=== PATIENT | female | born 1990 | race African-American/Black ===

== ENCOUNTER 2017-07-16 16:28 | Inpatient (IN) | payer OTHER ==
[~2017-07-16] VITALS: Ht 149.9 cm; Wt 54.1 kg
[2017-07-16 19:53] VITALS: BP 119/60
[2017-07-16] MEDS ORDERED: MAALOX 30 ML SUSP *UDC PO PRN (20:30)
[2017-07-16] MEDS ORDERED: ACETAMINOPHEN TAB 650MG DOSE (2X325MG) PO PRN (20:30)
[2017-07-16] MEDS ORDERED: traZODone 50 MG TAB PO PRN (20:30)
[2017-07-16] MEDS ORDERED: LORazepam 1 MG TAB PO PRN (20:30)
[2017-07-16] MEDS ORDERED: MOM 30ML SUSPENSION UDC PO PRN (20:30)
[2017-07-17 06:32] VITALS: BP 136/67
[2017-07-17] MEDS: ALBUTEROL 90 MCG/ACT 8GM HFA INHALER INH PRN ×2 (07:16→23:31)
[2017-07-17] MEDS ORDERED: SODIUM CHLORIDE NASAL 0.65% SPRAY BTL (OCEAN) PRN (08:45)
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
[2017-07-17 09:46] LABS: MEAN CORPUSCULAR HEMOGLOBIN 31.3 pg (27.0-33.0); MEAN CORPUSCULAR HGB CONC 34.1 g/dl (32.0-36.5); MEAN CORPUSCULAR VOLUME 91.7 fl (80.0-96.0); RED CELL DISTRIBUTION WIDTH 11.7 % (11.5-14.5); WHITE BLOOD COUNT 7.9 K/mm3 (4.0-10.0)
[2017-07-17 10:18] LABS: ALBUMIN 3.9 GM/DL (3.2-5.2); ALBUMIN/GLOBULIN RATIO 0.95 (1.00-1.93); ALKALINE PHOSPHATASE 55 U/L (45-117); ALT/SGPT 17 U/L (12-78); ANION GAP 12 MEQ/L (8-16); AST/SGOT 11 U/L (15-37); BILIRUBIN,TOTAL 0.7 MG/DL (0.2-1.0); BLOOD UREA NITROGEN 12 MG/DL (7-18); CALCIUM LEVEL 8.7 MG/DL (8.5-10.1); CARBON DIOXIDE LEVEL 22 MEQ/L (21-32); CHLORIDE LEVEL 105 MEQ/L (98-107); CREATININE FOR GFR 0.86 MG/DL (0.55-1.02); GLOMERULAR FILTRATION RATE > 60.0 (>60); GLUCOSE, FASTING 130 MG/DL (70-105); POTASSIUM SERUM 3.2 MEQ/L (3.5-5.1); SODIUM LEVEL 139 MEQ/L (136-145)
[2017-07-17 12:01] VITALS: BP 102/58
[2017-07-17] MEDS ORDERED: ACETAMINOPHEN TAB 650MG DOSE (2X325MG) PO ONE (14:30)
[2017-07-17 18:00] VITALS: BP 108/60
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
[2017-07-17] MEDS ORDERED: LORazepam 1 MG TAB PO PRN (20:30)
--- NOTE | 2017-07-17 21:48 | ECGEPIP ---
Stationary ECG Study [facility] Test Date: 2017-07-17 Pat Name: GRETEL TREVINO Department: Room: [place] [address] Gender: F Gin Inspector: FELICIA : 1990 Requested By: Leatha Saba Order Number: [id number] Reading MD: Tee Alcantar Measurements Intervals [place] Rate: 106 P: 74 NH: 152 QRS: 66 QRSD: 71 T: 63 QT: 298 QTc: 397 Interpretive Statements Sinus tachycardia Possible right atrial enlargement Nonspecific ST-T wave abnormalities Comparison tracing not on file Electronically Signed On 07-17-2017 21:48:33 EDT by Tee Alcantar
[2017-07-18 06:23] VITALS: BP 106/59
[2017-07-18 13:18] LABS: ANION GAP 11 MEQ/L (8-16); BLOOD UREA NITROGEN 9 MG/DL (7-18); CALCIUM LEVEL 8.9 MG/DL (8.5-10.1); CARBON DIOXIDE LEVEL 24 MEQ/L (21-32); CHLORIDE LEVEL 107 MEQ/L (98-107); CREATININE FOR GFR 0.61 MG/DL (0.55-1.02); GLOMERULAR FILTRATION RATE > 60.0 (>60); GLUCOSE, FASTING 87 MG/DL (70-105); POTASSIUM SERUM 3.4 MEQ/L (3.5-5.1); SODIUM LEVEL 142 MEQ/L (136-145)
[2017-07-18] MEDS ORDERED: POTASSIUM CHLORIDE 10 MEQ SR TABLET PO ONE (14:30)
--- NOTE | 2017-07-18 17:50 | MHIPNPDOC ---
[facility] Progress Note Progress Note DATE OF SERVICE: 07/18/17 HISTORY: Patient stalked into interview room, sat down and began to read a book she carrying. Put book down after a few seconds and stated "what? can I leave now?". Patient continues to deny that she was suicidal and states that "nothing here is going to help me". She has been refusing to attend groups and feels that all her problems can be managed outpatient. Accused staff of never giving her a consent form to sign to allow contact with her employer, [employer] indicated that patient had signed a PAT but not for her employer. Patient angrily signed an PAT and then stalked out of the interview. VITAL SIGNS: See below. NEW TEST RESULTS: as below CURRENT MEDICATIONS: See below. MENTAL STATUS EXAMINATION: Patient is a 26-year old female, who is dressed in [facility]; fair grooming; hostile, evasive, uncooperative Speech: Is fluent; angry tone, labile volume Thought processes including: concrete Thought content: denies SI/HI; angry about remaining hospitalized, refuses to attempt inpatient treatment Abstract reasoning, and computation: absent. Description of associations: intact Description of abnormal or psychotic thoughts: denies AVH, does not appear internally preoccupied; no paranoia or delusions elicited Judgment: poor Insight: poor Orientation: x3 Recent and remote memory: intact Attention span and concentration: intact Mood: "I don't need to be here". Affect: angry; restricted range; congruent to mood and thought content DIAGNOSES: MDD, moderate, without psychotic features Borderline Personality Disorder ASSESSMENT: Patient is acting out angrily due to loss of control. Continues to refuse to engage in treatment or cooperate with treatment team. Interview has been limited. Patient denies SI but has not been open with the team and therefore an adequate assessment of her risk of self-harm has been unable to be completed. Given her overt hostility and observed impulsiveness the patient would probably be a moderate-high risk of suicide. She continues to require hospitalization for stabilization at this time. MANAGEMENT PLAN: continue to encourage group participation; discuss medication as able with patient TIME SPENT: 15 minutes. Vital Signs Vital Signs Date Time Temp Pulse Resp B/P (MAP) Pulse Ox O2 Delivery O2 Flow Rate FiO2 07/18/17 06:23 97.8 97 16 106/59 (75) 07/16/17 19:53 Room Air 07/16/17 19:38 98 Laboratory Data 24H Labs Laboratory Tests 2 07/18/17 12:13: Anion Gap 11, Glomerular Filtration Rate > 60.0, Blood Urea Nitrogen 9, Creatinine 0.61, Sodium Level 142, Potassium Level 3.4L, Chloride Level 107, Carbon Dioxide Level 24, Calcium Level 8.9 CBC/BMP Laboratory Tests 07/18/17 12:13 Calcium Level 8.9 Current Medications Current Medications Acetaminophen (Tylenol Tab) 650 mg Q6HP PRN PO HEADACHE or DISCOMFORT Last administered on 07/17/17 23:32; Start 07/16/17 at 20:30; Stop 08/15/17 at 20: 29 Al Hydrox/Mg Hydrox/Simethicone (Mylanta) 30 ml Q4HP PRN PO HEARTBURN/ INDIGESTION; Start 07/16/17 at 20:30; Stop 08/15/17 at 20:29 Albuterol Sulfate (Proventil, Ventolin Hfa) 2 puff Q4HP PRN INH SHORTNESS OF BREATH Last administered on 07/17/17 23:31; Start 07/17/17 at 01:00; Stop at 00:59 Cetylpyridinium Chloride (Cepacol) 1 afua Q2HP PRN PO cough; Start 07/17/17 at 08:45; Stop 08/16/17 at 08:44 Home Med (Med Rec Complete!) ASDIRECTED XX ; Start 07/16/17 at 17:15; Stop at 17:25; Status DC Lorazepam (Ativan) 1 mg Q4HP PRN PO ANXIETY/AGITATION Last administered on 07/17 00:55; Start 07/16/17 at 20:30; Stop 07/17/17 at 11:06; Status DC Lorazepam (Ativan) 1 mg Q8HP PRN PO ANXIETY/AGITATION; Start 07/17/17 at 20:30 ; Stop 07/23/17 at 20:29 Magnesium Hydroxide (Milk Of Magnesia) 30 ml DAILYPRN PRN PO CONSTIPATION; Start 07/16/17 at 20:30; Stop 08/15/17 at 20:29 Sodium Chloride ([place]al [place]) 2 spray Q2HP PRN NA NASAL DRYNESS; Start at 08:45; Stop 08/16/17 at 08:44 Trazodone HCl (Desyrel) 50 mg QHSP PRN PO INSOMNIA; Start 07/16/17 at 20:30; Stop 08/15/17 at 20:29 Allergies Coded Allergies: No Known Allergies (Unverified , 07/16/17) LENA MURPHY MD Jul 18, 2017 17:50
[2017-07-18 18:00] VITALS: BP 119/64
[2017-07-18] MEDS: CEPACOL LOZENGE PO PRN (21:36)
[2017-07-18] MEDS: ALBUTEROL 90 MCG/ACT 8GM HFA INHALER INH PRN (21:36)
[2017-07-19 06:46] VITALS: BP 106/63
[2017-07-19] MEDS: ALBUTEROL 90 MCG/ACT 8GM HFA INHALER INH PRN (07:28)
[2017-07-19] MEDS ORDERED: ALBUTEROL SULFATE 2.5 MG/0.5 ML INH NEB SOLN INH PRN (09:00)
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
[2017-07-19 10:14] LABS: BASO % 0.3 % (0.0-1.0); EOS # 0.4 K/mm3 (0.0-0.50); EOS % 9.2 % (0.0-3.0); LARGE UNSTAINED CELL # 0.2 K/mm3 (0.0-0.4); LARGE UNSTAINED CELL % 3.5 % (0.0-4.0); LYMPH # 1.3 K/mm3 (1.5-6.5); LYMPH % 25.7 % (24.0-44.0); MEAN CORPUSCULAR HEMOGLOBIN 30.9 pg (27.0-33.0); MEAN CORPUSCULAR HGB CONC 34.4 g/dl (32.0-36.5); MEAN CORPUSCULAR VOLUME 89.9 fl (80.0-96.0); MONO # 0.3 K/mm3 (0.0-0.8); MONO % 6.5 % (0.0-5.0); NEUTROPHILS # 2.7 K/mm3 (1.8-7.7); NEUTROPHILS % 54.8 % (36.0-66.0); PLATELET COUNT, AUTOMATED 256 k/mm3 (150-450); RED CELL DISTRIBUTION WIDTH 11.5 % (11.5-14.5); WHITE BLOOD COUNT 4.9 K/mm3 (4.0-10.0)
[2017-07-19 10:36] LABS: ALBUMIN 3.8 GM/DL (3.2-5.2); ALBUMIN/GLOBULIN RATIO 0.95 (1.00-1.93); ALKALINE PHOSPHATASE 50 U/L (45-117); ALT/SGPT 16 U/L (12-78); ANION GAP 9 MEQ/L (8-16); AST/SGOT 8 U/L (15-37); BILIRUBIN,TOTAL 0.4 MG/DL (0.2-1.0); BLOOD UREA NITROGEN 8 MG/DL (7-18); CARBON DIOXIDE LEVEL 27 MEQ/L (21-32); CHLORIDE LEVEL 106 MEQ/L (98-107); CREATININE FOR GFR 0.76 MG/DL (0.55-1.02); GLOMERULAR FILTRATION RATE > 60.0 (>60); GLUCOSE, FASTING 107 MG/DL (70-105); POTASSIUM SERUM 3.5 MEQ/L (3.5-5.1); SODIUM LEVEL 142 MEQ/L (136-145); TOTAL PROTEIN 7.8 GM/DL (6.4-8.2)
[2017-07-19] MEDS: VENLAFAXINE 25 MG TAB PO SCH (11:38)
[2017-07-19] MEDS: ALBUTEROL SULFATE 2.5 MG/0.5 ML INH NEB SOLN INH SCH ×3 (11:58→19:05)
--- NOTE | 2017-07-19 14:36 | REP ---
CHEST, TWO VIEWS: There is no evidence of acute infiltrate. No pleural effusion is seen. The heart is normal in size. The mediastinal silhouette is unremarkable. The visualized osseous structures are intact. IMPRESSION: No acute pulmonary disease. Signed by Juan Diego Chin MD 07/20/2017 05:33 P
--- NOTE | 2017-07-19 17:59 | MHIPNPDOC ---
[facility] Progress Note Progress Note DATE OF SERVICE: 07/19/17 HISTORY: Patient calmer today, stated that she would be willing to begin taking medications. Voiced hope that she would be able to discharge soon after having spoken with her facility planner. VITAL SIGNS: See below. NEW TEST RESULTS: see below CURRENT MEDICATIONS: See below. MENTAL STATUS EXAMINATION: Patient is a 26-year old female, who is dressed in [facility] with fair grooming; patient is calm and cooperative, less guarded and withdrawn than previously Speech: Is fluent; normal rate, tone, and volume Thought processes including: logical, linear, coherent Thought content: denies SI/HI; frustrated at being hospitalized, wants to leave Description of associations: intact Description of abnormal or psychotic thoughts: denies AVH, does not appear internally preoccupied; no delusions or paranoia elicited Judgment: fair Insight: fair Orientation: x3 Recent and remote memory: intact Attention span and concentration: intact Mood: "okay". Affect: neutral; blunted range; congruent to mood and thought content DIAGNOSES: MDD, moderate, without psychotic features Unspecified Personality Disorder ASSESSMENT: Patient is improving, has remained free of SI. Has begun cooperating with treatment team and is entering a partnership phase for treatment. Still remains somewhat guarded with her answers. No safety concern noted, patient would likely be able to maintain safety in the outpatient setting. MANAGEMENT PLAN: start venlafaxine and aripiprazole, will titrate as tolerated; continue to encourage group participation; begin discharge planning TIME SPENT: 15 minutes. Vital Signs Vital Signs Date Time Temp Pulse Resp B/P (MAP) Pulse Ox O2 Delivery O2 Flow Rate FiO2 07/19/17 07:50 Room Air 94 07/19/17 06:46 97.0 92 18 106/63 (77) 07/16/17 19:38 98 Laboratory Data 24H Labs Laboratory Tests 2 07/19/17 09:46: White Blood Count 4.9, Red Blood Count 4.58, Hemoglobin 14.2, Hematocrit 41.2, Mean Corpuscular Volume 89.9, Mean Corpuscular Hemoglobin 30.9, Mean Corpuscular Hemoglobin Concent 34.4, Red Cell Distribution Width 11.5, Platelet Count 256, Neutrophils (%) (Auto) 54.8, Lymphocytes (%) (Auto) 25.7, Monocytes ( %) (Auto) 6.5H, Eosinophils (%) (Auto) 9.2H, Basophils (%) (Auto) 0.3, Neutrophils # (Auto) 2.7, Lymphocytes # (Auto) 1.3L, Monocytes # (Auto) 0.3, Eosinophils # (Auto) 0.4, Basophils # (Auto) 0.0, Large Unclassified Cells % 3.5 , Large Unclassified Cells # 0.2, Anion Gap 9, Glomerular Filtration Rate > 60.0 , Blood Urea Nitrogen 8, Creatinine 0.76, Sodium Level 142, Potassium Level 3.5 , Chloride Level 106, Carbon Dioxide Level 27, Calcium Level 9.0, Aspartate Amino Transf (AST/SGOT) 8L, Alanine Aminotransferase (ALT/SGPT) 16, Alkaline Phosphatase 50, Total Bilirubin 0.4, Total Protein 7.8, Albumin 3.8, Albumin/ Globulin Ratio 0.95L CBC/BMP Laboratory Tests 07/19/17 09:46 Red Blood Count 4.58, Mean Corpuscular Volume 89.9, Mean Corpuscular Hemoglobin 30.9, Mean Corpuscular Hemoglobin Concent 34.4, Red Cell Distribution Width 11.5 , Neutrophils (%) (Auto) 54.8, Lymphocytes (%) (Auto) 25.7, Monocytes (%) (Auto ) 6.5 H, Eosinophils (%) (Auto) 9.2 H, Basophils (%) (Auto) 0.3, Neutrophils # ( Auto) 2.7, Lymphocytes # (Auto) 1.3 L, Monocytes # (Auto) 0.3, Eosinophils # ( Auto) 0.4, Basophils # (Auto) 0.0, Calcium Level 9.0, Aspartate Amino Transf ( AST/SGOT) 8 L, Alanine Aminotransferase (ALT/SGPT) 16, Alkaline Phosphatase 50, Total Bilirubin 0.4, Total Protein 7.8, Albumin 3.8 Current Medications Current Medications Acetaminophen (Tylenol Tab) 650 mg Q6HP PRN PO HEADACHE or DISCOMFORT Last administered on 07/17/17t 23:32; Start 07/16/17 at 20:30; Stop 08/15/17 at 20: 29 Al Hydrox/Mg Hydrox/Simethicone (Mylanta) 30 ml Q4HP PRN PO HEARTBURN/ INDIGESTION; Start 07/16/17 at 20:30; Stop 08/15/17 at 20:29 Albuterol Sulfate (Proventil Neb) 2.5 mg Q2HP PRN INH SOB/WHEEZING; Start 07/19 at 09:00; Stop 08/18/17 at 08:59 Albuterol Sulfate (Proventil Neb) 2.5 mg RQID INH Last administered on 11:58; Start 07/19/17 at 12:00; Stop 08/18/17 at 11:59 Albuterol Sulfate (Proventil, Ventolin Hfa) 2 puff Q4HP PRN INH SHORTNESS OF BREATH Last administered on 07/19/17 07:28; Start 07/17/17 at 01:00; Stop at 00:59 Aripiprazole (AbiLIFY) 2.5 mg QHS PO ; Start 07/19/17 at 21:00; Stop 08/18/17 at 20:59 Cetylpyridinium Chloride (Cepacol) 1 afua Q2HP PRN PO cough Last administered on 07/18/17 21:36; Start 07/17/17 at 08:45; Stop 08/16/17 at 08:44 Home Med (Med Rec Complete!) ASDIRECTED XX ; Start 07/16/17 at 17:15; Stop at 17:25; Status DC Lorazepam (Ativan) 1 mg Q4HP PRN PO ANXIETY/AGITATION Last administered on 07/17 00:55; Start 07/16/17 at 20:30; Stop 07/17/17 at 11:06; Status DC Lorazepam (Ativan) 1 mg Q8HP PRN PO ANXIETY/AGITATION; Start 07/17/17 at 20:30 ; Stop 07/23/17 at 20:29 Magnesium Hydroxide (Milk Of Magnesia) 30 ml DAILYPRN PRN PO CONSTIPATION; Start 07/16/17 at 20:30; Stop 08/15/17 at 20:29 Sodium Chloride ([place] Nasal [place]) 2 spray Q2HP PRN NA NASAL DRYNESS; Start at 08:45; Stop 08/16/17 at 08:44 Trazodone HCl (Desyrel) 50 mg QHSP PRN PO INSOMNIA; Start 07/16/17 at 20:30; Stop 08/15/17 at 20:29 Venlafaxine HCl (Effexor) 50 mg QAM PO Last administered on 07/19/17t 11:38; Start 07/19/17 at 09:00; Stop 08/18/17 at 08:59 Allergies Coded Allergies: No Known Allergies (Unverified , 07/16/17) LENA MURPHY MD Jul 19, 2017 17:59
[2017-07-19 18:20] VITALS: BP 107/70
[2017-07-20 06:49] VITALS: BP 105/59
[2017-07-20] MEDS: ALBUTEROL SULFATE 2.5 MG/0.5 ML INH NEB SOLN INH SCH (07:35)
[2017-07-20] MEDS: VENLAFAXINE 25 MG TAB PO SCH (08:51)
[2017-07-20] MEDS: CEPACOL LOZENGE PO PRN (08:53)
[2017-07-20] MEDS ORDERED: ONDANSETRON 4 MG ORAL DISINTEGRATING TAB (S0181) PO ONE (10:30)
--- NOTE | 2017-07-20 16:55 | MHIPNPDOC ---
[facility] Progress Note Progress Note DATE OF SERVICE: 07/20/17 HISTORY: Mood is better. Reported nausea with 3x episodes of emesis, unclear if due to respiratory tests or starting medications. Patient reported still feeling nauseous, but less so than yesterday, was given Zofran with minor benefit. Excited about prospect of discharge tomorrow. VITAL SIGNS: See below. NEW TEST RESULTS: no new labs/imaging CURRENT MEDICATIONS: See below. MENTAL STATUS EXAMINATION: Patient is a 26-year old female, who is dressed in hospital[facility] with good hygiene/grooming; cooperative with exam, calm, good eye contact Speech: Is fluent; normal rate and tone, soft volume Thought processes including: logical, linear, coherent Thought content: denies SI/HI; focused on discharge and current physical discomfort Description of abnormal or psychotic thoughts: denies AVH, does not appear internally preoccupied; no paranoia or delusions elicited Judgment: fair Insight: fair Orientation: x3 Recent and remote memory: intact Attention span and concentration: intact Mood: "pretty good". Affect: neutral; blunted range; congruent to thought content DIAGNOSES: MDD without psychotic features Unspecified Personality Disorder ASSESSMENT: Patient is improving, she has remained free from reported SI throughout the admission and has not made any suicidal gestures. Patient has some concerns about returning to her job but is aware that a note has been sent regarding her hospitalization. Plans to continue with outpatient care with a focus on therapy. Patient does not appear to be a danger to herself or others at this time. She could likely be discharged with plan to follow-up at local providers in [facility]. MANAGEMENT PLAN: decrease venlafaxine to 37.5mg daily; continue other medications; encourage patient to attend groups; organize discharge information for patient TIME SPENT: 15 minutes. Vital Signs Vital Signs Date Time Temp Pulse Resp B/P (MAP) Pulse Ox O2 Delivery O2 Flow Rate FiO2 07/20/17 10:20 Room Air 07/20/17 06:49 97.3 74 16 105/59 (74) 07/19/17 18:20 99 07/19/17 07:50 94 Current Medications Current Medications Acetaminophen (Tylenol Tab) 650 mg Q6HP PRN PO HEADACHE or DISCOMFORT Last administered on 07/17/17t 23:32; Start 07/16/17 at 20:30; Stop 08/15/17 at 20: 29 Al Hydrox/Mg Hydrox/Simethicone (Mylanta) 30 ml Q4HP PRN PO HEARTBURN/ INDIGESTION; Start 07/16/17 at 20:30; Stop 08/15/17 at 20:29 Albuterol Sulfate (Proventil Neb) 2.5 mg Q2HP PRN INH SOB/WHEEZING; Start 07/19 at 09:00; Stop 07/20/17 at 08:43; Status DC Albuterol Sulfate (Proventil Neb) 2.5 mg RQID INH Last administered on 11:58; Start 07/19/17 at 12:00; Stop 07/20/17 at 08:43; Status DC Albuterol Sulfate (Proventil, Ventolin Hfa) 2 puff Q4HP PRN INH SHORTNESS OF BREATH Last administered on 07/19/17 07:28; Start 07/17/17 at 01:00; Stop at 00:59 Aripiprazole (AbiLIFY) 2 mg QHS PO ; Start 07/20/17 at 21:00; Stop 08/19/17 at 20:59 Aripiprazole (AbiLIFY) 2.5 mg QHS PO Last administered on 07/19/17 21:31; Start 07/19/17 at 21:00; Stop 07/20/17 at 11:54; Status DC Cetylpyridinium Chloride (Cepacol) 1 afua Q2HP PRN PO cough Last administered on 07/20/17 08:53; Start 07/17/17 at 08:45; Stop 08/16/17 at 08:44 Home Med (Med Rec Complete!) ASDIRECTED XX ; Start 07/16/17 at 17:15; Stop at 17:25; Status DC Lorazepam (Ativan) 1 mg Q4HP PRN PO ANXIETY/AGITATION Last administered on 07/17 00:55; Start 07/16/17 at 20:30; Stop 07/17/17 at 11:06; Status DC Lorazepam (Ativan) 1 mg Q8HP PRN PO ANXIETY/AGITATION; Start 07/17/17 at 20:30 ; Stop 07/23/17 at 20:29 Magnesium Hydroxide (Milk Of Magnesia) 30 ml DAILYPRN PRN PO CONSTIPATION Last administered on 07/19/17t 18:18; Start 07/16/17 at 20:30; Stop 08/15/17 at 20: 29 Sodium Chloride ([place] Nasal [place]) 2 spray Q2HP PRN NA NASAL DRYNESS; Start at 08:45; Stop 08/16/17 at 08:44 Trazodone HCl (Desyrel) 50 mg QHSP PRN PO INSOMNIA; Start 07/16/17 at 20:30; Stop 08/15/17 at 20:29 Venlafaxine HCl (Effexor) 37.5 mg DAILY PO ; Start 07/21/17 at 09:00; Stop at 08:59 Venlafaxine HCl (Effexor) 50 mg QAM PO Last administered on 07/20/17 08:51; Start 07/19/17 at 09:00; Stop 07/20/17 at 11:51; Status DC Allergies Coded Allergies: No Known Allergies (Unverified , 07/16/17) LENA MURPHY MD Jul 20, 2017 16:55
[2017-07-20 18:00] VITALS: BP 108/82
[2017-07-20] MEDS ORDERED: ARIPiprazole 2 MG TAB PO SCH (21:00)
[2017-07-21 06:33] VITALS: BP 108/59
[2017-07-21] MEDS ORDERED: VENLAFAXINE 37.5 MG TAB PO SCH (09:00)
[2017-07-21] MEDS ORDERED: TRAZO50TA PO (09:37)
[2017-07-21] MEDS ORDERED: ARIP2TAB PO (09:37)
[2017-07-21] MEDS ORDERED: ALBU17IN INH (09:37)
[2017-07-21] MEDS ORDERED: VENL37TA PO (09:37)
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
== END 2017-07-21 10:30 | disposition home or self-care (01) | DRG 754 ==
LOC: M ED 16:28 → M ED INP 18:36 → M PSY 19:46
PROVIDERS: ADMIT Psychiatry & Neurology Psychiatry; ATTEND Psychiatry & Neurology Psychiatry
DX: F32.9 Major depressive disorder, single episode, unspecified (principal); F60.9 Personality disorder, unspecified; J45.909 Unspecified asthma, uncomplicated; G47.00 Insomnia, unspecified; J06.9 Acute upper respiratory infection, unspecified; J20.9 Acute bronchitis, unspecified